=== PATIENT | male | born 1985 | race Caucasian/White ===

== ENCOUNTER 2022-08-13 21:22 | Emergency (ER) | payer BC, SELFPAY ==
[2022-08-13 21:25] VITALS: BP 140/84; PULSE 107; RESP 18; TEMP 36.8; O2SAT 98; BMI 56.5
--- NOTE | 2022-08-13 21:40 | ED.GENADULT ---
HPI - General Adult General Time Seen by Provider: 21:40 Date Seen: 08/13/22 Chief complaint: Unspecified Complaint, Adult Stated complaint: Bleeding hemorrhoid four hours Time Seen by Provider: 08/13/22 21:26 Source: patient and RN notes reviewed Mode of arrival: ambulatory Limitations: no limitations History of Present Illness HPI narrative: Patient is a 37-year-old male coming in with a presumed bleeding hemorrhoid. Start about 4 hours ago after wiping. He has been having problems with irregular bowel movements and went in to talk to his doctor. Told him about the feeling of incomplete emptying. During examination he reportedly was noted to have a hemorrhoid, his doctor gave him some steroid type cream. He also was working on bowel management with him. He started him on MiraLax and once the bowels were getting soft, told him to start Metamucil which she has not done. He does note that the bowels are softer and he has been going about twice a day. Denies any pain rectally. The hemorrhoid has not been painful. He is not on any blood thinners, has noted no problems with bleeding brushing his teeth, no petechial type rash. He does note that initially when he wiped he thought there was a lot of blood. He has continued to have bleeding from the hemorrhoid. Again this is painless. Related Data Home Medications Medication Instructions Recorded Confirmed famotidine 40 mg tablet 40 mg PO DAILY 08/13/22 08/13/22 hydrocortisone 2.5 % topical cream 1 applic topical BID PRN 08/13/22 08/13/22 lisinopril 10 1 tab PO DAILY 08/13/22 08/13/22 mg-hydrochlorothiazide 12.5 mg tablet Allergies Allergy/AdvReac Type Severity Reaction Status Date / Time No Known Drug Allergies Allergy Verified 08/13/22 21:30 Review of Systems Narrative: as per HPI PFSH PFSH Social History Smoking Status: Never smoker Do you use any of these nicotine containing products: None How often do you have a drink containing alcohol: monthly or less AUDIT-C Alcohol total score: 1 Non-prescribed substance use: denies use Exam Const: Vital Signs, click to edit/add: Vital Signs - 24 hr 08/13/22 21:25 Temperature 98.2 F Pulse Rate [Right Pulse Oximeter] 107 H Respiratory Rate 18 Blood Pressure [Ri ght Upper Arm] 140/84 H Pulse Oximetry 98 Oxygen Delivery Me thod Room Air Documenting provider has reviewed patient's vital signs: yes Common normals: no apparent distress, oriented x3, no limitations, healthy appearing, alert and well nourished General appearance: cooperative, comfortable, well kempt and well developed Nutritional appearance: obese Back & Pelvis: Other: Patient has some dried blood in the intergluteal region. On inspection of his anus as he is lying on his right side shows an area that looks like it has been a prior opening of a thrombosed hemorrhoid at about a 7 or 8 o'clock position. There is a tear drop shaped opening with no active bleeding that looks well healed. He states he has never had any intervention with hemorrhoids before. At about a 3 year 4 o'clock position there is a small pinpoint actively bleeding area. There is no underlying tenderness of this area. I can see some more prominent vessels but they are not thrombosed. He is absolutely not tender when I palpate this area. He has been using pressure with gauze and has not stop the bleeding for about 4 hours. I have reviewed with the patient that I do think we should proceed with a suture to try to stop the bleeding. I see no apparent underlying thrombosed hemorrhoid. Patient does give consent for this. With assistance of his nurse Jassi whom a helped with exposure, I was able to anesthetize the area using 1 mL of 2% xylocaine with epinephrine. I then had placed 2 figure of 8 stitches overlying this area using 5 0 Vicryl. The 1st suture did not capture full hemostasis, 2nd 1 was placed. This seemed to stop the bleeding. We did place surgifoam on top of this and then gauze between the intergluteal folds to ensure no further bleeding. Patient tolerated this well. Neuro: Common normals: oriented x3 Sensorium/orientation: alert Psych: Appearance: well kempt Course Vital Signs Vital signs: Initial Vital Signs Temperature 98.2 F 08/13/22 21:25 Temperature Source Temporal Artery Scan 08/13/22 21:25 Pulse Rate 107 H 08/13/22 21:25 Respiratory Rate 18 08/13/22 21:25 Blood Pressure 140/84 H 08/13/22 21:25 Blood Pressure Mean 102 08/13/22 21:25 Blood Pressure Position Sitting 08/13/22 21:25 Pulse Oximetry 98 08/13/22 21:25 Oxygen Delivery Method 08/13/22 21:25 Vital Signs Temperature 98.2 F 08/13/22 21:25 Pulse Rate 107 H 08/13/22 21:25 Respiratory Rate 18 08/13/22 21:25 Blood Pressure 140/84 H 08/13/22 21:25 Pulse Oximetry 98 08/13/22 21:25 Oxygen Delivery Method 08/13/22 21:25 Temperature 98.2 F 08/13/22 21:25 Pulse Rate 107 H 08/13/22 21:25 Respiratory Rate 18 08/13/22 21:25 Blood Pressure 140/84 H 08/13/22 21:25 Pulse Oximetry 98 08/13/22 21:25 Oxygen Delivery Method 08/13/22 21:25 Critical Care Time Critical Care Time Critical Care Time: No Discharge Plan Discharge Clinical Impression: External hemorrhoid, bleeding Condition: Stable Instructions: Hemorrhoids (ED) Additional Instructions: Try to leave the surgifoam and current gauze in place until morning. If for some reason the do get disrupted, do not worry about it unless the bleeding starts again. In the morning, can shower and try to allow the gauze and the surgifoam to fall off on its own. The stitches that I put in should absorb on their own. I do recommend follow-up with your primary care provider within the next week for re-evaluation of this area. If you have further problems, may actually need to see 1 of our general surgeons for further evaluation and treatment of this issue. Activity Level: Activity as Tolerated Prescriptions: No Action lisinopril-hydrochlorothiazide 10-12.5 mg tablet 1 tab PO DAILY Label Comments: TAKE 1 TABLET BY MOUTH EVERY DAY hydrocortisone 2.5 % cream 1 applic TOPICAL BID PRN Label Comments: APPLY TOPICALLY TO THE AFFECTED AREA TWICE DAILY famotidine 40 mg tablet 40 mg PO DAILY Label Comments: TAKE 1 TABLET BY MOUTH DAILY Follow Up/Referrals: Josef Monk MD [Primary Care Provider] - Stand Alone Forms: [facility] Info Instructions
--- NOTE | 2022-08-13 22:04 | ED.NURSE ---
placed 2 suture in the hemorroid and placed gel foam with 4x4s packed in the buttocks. bleeding has stopped for now.
== END 2022-08-13 22:38 | disposition home or self-care (01) ==
LOC: ED 22:19
PROVIDERS: Emergency Provider Family Medicine; PCP Student in an Organized Health Care Education/Training Program
DX: K64.8 Other hemorrhoids (principal)
CPT/HCPCS: 12001; 99283

== ENCOUNTER 2022-11-05 10:08 | Outpatient (CLI) | payer BC, SELFPAY | END 2022-11-05 10:09 | disposition home or self-care (01) | LOC: AMB 11-07 10:40 | PROVIDERS: PCP Student in an Organized Health Care Education/Training Program; Visit Provider Family Medicine | DX: M54.9 Dorsalgia, unspecified (principal) | CPT/HCPCS: A0425; A0427 ==

== ENCOUNTER 2022-11-05 10:39 | Emergency (ER) | payer BC, SELFPAY ==
[2022-11-05 11:26] VITALS: BP 168/82; PULSE 88; RESP 20; TEMP 36.9; O2SAT 100
--- NOTE | 2022-11-05 11:56 | ED_ITS ---
HPI - Back Pain/Injury General Time Seen by Provider: 11:56 Date Seen: 11/05/22 Chief Complaint: Back Injury/Pain Stated Complaint: Back pain Time Seen by Provider: 11/05/22 11:52 Source: patient Mode of arrival: ambulatory Limitations: no limitations History of Present Illness HPI Narrative: Ty is a 37-year-old male past medical history includes obstructive sleep apnea, obesity, GERD on omeprazole and Pepcid presents emergency department via EMS with a back injury. 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 No real shortness of breath. Pain progressively got worse, he ended up going home, did take some magnesium, which he has been taking for his right lower extremity cramping that he gets from time to time every 5 weeks or so. No history of any DVTs or PEs, h his father had pulmonary embolism but he had a history of lung cancer, patient has no cardiac history, no long travel. Pain is a dull ache under his left breast that has developed, worse with inspiration, pain in the back is minimal. Patient has had back issues in the past but nothing like this. No trauma or falls. Denies any nausea vomiting, abdominal pain. No fevers or chills. Patient tried to get his parents taken to the emergency department, but he was so uncomfortable he called EMS. They did do a 12 lead on route, they were unable to get a IV. Related Data Home Medications Medication Instructions Recorded Confirmed famotidine 40 mg tablet 40 mg PO DAILY 08/13/22 08/13/22 hydrocortisone 2.5 % topical cream 1 applic topical BID PRN 08/13/22 08/13/22 lisinopril 10 1 tab PO DAILY 08/13/22 08/13/22 mg-hydrochlorothiazide 12.5 mg tablet Allergies Allergy/AdvReac Type Severity Reaction Status Date / Time No Known Drug Allergies Allergy Verified 08/13/22 21:30 Review of Systems Status of ROS: Reports: 10 or more systems reviewed and unremarkable except as noted in History and below PFSH PFSH Social History Smoking Status: Never smoker Do you use any of these nicotine containing products: None How often do you have a drink containing alcohol: monthly or less AUDIT-C Alcohol total score: 1 Non-prescribed substance use: denies use Exam Narrative: Exam Narrative: General: No obvious distress sitting comfortably, nontoxic in appearance HEENT: Pupils equal round reactive to light, extraocular muscles intact Lungs: Clear to auscultation bilaterally Neck: Nontender cervical spine, supple full range of motion Heart normal sinus rhythm S1-S2 Muscle skeletal: Mild tenderness to palpation the left upper thoracic region just inferior to the scapula Mild tenderness to palpation, ribs just below his left breast Abdomen: Obese, bowel sounds present, distended but soft, nontender to palpation No CVA tenderness Lower extremity: Chronic lower extremity swelling, no palpable cord. Neuro: Alert awake and oriented x3 Const: Vital Signs, click to edit/add: Vital Signs - 24 hr 11/05/22 11:26 11/05/22 14:04 Temperature 98.5 F Pulse Rate [Right Pulse Oximeter] 88 93 Respiratory Rate 20 Blood Pressure [Ri ght Upper Arm] 168/82 H 133/80 Pulse Oximetry 100 98 Oxygen Delivery Me thod Room Air Room Air Course Course Hospital Course: 12:00 PM: AIDET performed. work up will include urinalysis, CBC, point of care troponin, D-dimer, CMP, lipase, IV peripheral,15 mg IV Toradol for his pain, s eems more reproducible, atypical presentation for PE, no tachycardia, hypoxia, it is pleuritic however, Wells criteria, 0.0 points. patients blood presssure elevated will continue to monitor. Patient was in agreement Differential diagnosis include but not limited to life-threatening cauda equina epidural abscess, [place]/CAD, PE, aortic dissection, other considerations include sprain, contusion, nerve root and track min, radiculopathy, muscle spasm, urolithiasis, lumbar fracture, pyelonephritis as well as other etiologies, patient denies saddle anesthesia, bowel or bladder incontinence or lower ex tremity weakness. 2:00 PM: patient was updated on his lab results, EKG showed a normal sinus rhythm with an incomplete right bundle-branch block, no comparisons, per ED provider, point of care troponin was 0.0, D-dimer within normal limits, CBC showed no leukocytosis, he had mildly elevated LFTs, but a normal lipase. S given the above care and is back pain improved, however still having some chest pain and upper abdominal pain in the epigastric. He was given 2 mg IV morphine and 40 mg IV Protonix. Plan to still obtain CTA chest with IV contrast. Patient was in agreement. Reevaluation(s) Reevaluation #1: CTA chest with IV contrast: IMPRESSION: 1. No evidence of pulmonary embolus. 2. No acute pulmonary consolidation. 3. Moderate hepatic steatosis. Patient was updated on his imaging results no evidence of pulmonary embolism, minor hepatic steatosis consistent with his elevated LFTs, patient was still having some upper epigastric left anterior chest pain, repeat troponin was 0.0, he was given and GI cocktail due to his history of GERD and radiation of pain from his back to the front. CT imaging showed no concerning factors for the thoracic an ascending aorta. 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 He will schedule a follow-up appointment with his primary care provider in the next 2 days. Return precautions given. Time: 15:48 Vital Signs Vital signs: Initial Vital Signs Temperature 98.5 F 11/05/22 11:26 Temperature Source Temporal Artery Scan 11/05/22 11:26 Pulse Rate 88 11/05/22 11:26 Pulse Rhythm Regular 11/05/22 11:26 Respiratory Rate 20 11/05/22 11:26 Blood Pressure 168/82 H 11/05/22 11:26 Blood Pressure Mean 110 H 11/05/22 11:26 Blood Pressure Position Sitting 11/05/22 11:26 Pulse Oximetry 100 11/05/22 11:26 Oxygen Delivery Method Room Air 11/05/22 11:26 Vital Signs Temperature 98.5 F 11/05/22 11:26 Pulse Rate 88 11/05/22 11:26 Respiratory Rate 20 11/05/22 11:26 Blood Pressure 168/82 H 11/05/22 11:26 Pulse Oximetry 100 11/05/22 11:26 Oxygen Delivery Method Room Air 11/05/22 11:26 Temperature 98.5 F 11/05/22 11:26 Pulse Rate 93 04/25/23 14:04 Respiratory Rate 20 11/05/22 11:26 Blood Pressure 133/80 11/05/22 14:04 Pulse Oximetry 98 11/05/22 14:04 Oxygen Delivery Method Room Air 11/05/22 14:04 MDM - Back Pain/Injury Lab Data Labs: Lab Results 11/05/22 11/05/22 11/05/22 Range/Units 11:45 13:10 13:17 WBC 8.68 (4.50-11.00) K/uL RBC 5.35 (4.30-5.90) m/uL Hgb 14.4 (13.5-17.5) gm/dL Hct 44.3 (37.0-53.0) % MCV 83 (80-100) fL MCH 27 (26-34) pg MCHC 33 (32-36) gm/dL RDW Coeff of Darren 14.2 (11.5-15.5) % Plt Count 249 (140-440) K/uL Neut % (Auto) 79.5 H (42.0-72.0) % Lymph % (Auto) 12.2 L (20-44) % [place] % (Auto) 6.5 (0.0-11.0) % Eos % (Auto) 1.0 (0.0-7.0) % Baso % (Auto) 0.3 (0.0-3.0) % Neut # (Auto) 6.90 (1.7-7.0) K/uL Lymph # (Auto) 1.10 (0.90-2.90) K/uL Norton # (Auto) 0.60 (0.00-0.90) K/UL Eos # (Auto) 0.09 (0.00-0.50) K/uL Baso # (Auto) 0.03 (0.00-0.30) K/uL D-Dimer Quant (PE/DVT) 0.28 (0.00-0.50) ug/ml Sodium 138 (135-149) mmol/L Potassium 4.4 (3.6-5.1) mmol/L Chloride 104 (96-114) mmol/L Carbon Dioxide 26 (20-32) mmol/L BUN 17 (5-24) mg/dL Creatinine 1.2 (0.5-1.5) mg/dL Estimated GFR 79 ml/min Glucose 115 (60-115) mg/dL Calcium 9.6 (8.4-10.6) mg/dL Total Bilirubin 0.7 (0.1-1.5) mg/dL AST 43 H (12-35) U/L ALT 73 H (4-50) U/L Alkaline Phosphatase 53 (40-150) U/L Total Protein 7.8 (6.0-8.3) g/dL Albumin 4.6 (3.3-5.0) g/dL Lipase 48 (23-300) U/L Urine Color Yellow (Yellow) Urine Appearance Clear (Clear) Urine pH 6.5 (5.0-8.5) Ur Specific [place] 1.020 (1.000-1.030) Urine Protein Negative (Negative) Urine Glucose (UA) Negative (Negative) Urine Ketones Negative (Negative) Urine Blood Negative (Negative) Urine Nitrite Negative (Negative) Urine Bilirubin Negative (Negative) Urine Urobilinogen 0.2 (0.2-1.0) Ur Leukocyte Esterase Negative (Negative) Urine RBC 0-2 (0-2) Urine WBC 0-2 (0-5) Ur Squamous Epith Cells None (None-Few) Urine Bacteria None (None) POC Troponin I 0.00 L (0.01-0.04) ng/ml 11/05/22 Range/Units 16:10 WBC (4.50-11.00) K/uL RBC (4.30-5.90) m/uL Hgb (13.5-17.5) gm/dL Hct (37.0-53.0) % MCV (80-100) fL MCH (26-34) pg MCHC (32-36) gm/dL RDW Coeff of Darren (11.5-15.5) % Plt Count (140-440) K/uL Neut % (Auto) (42.0-72.0) % Lymph % (Auto) (20-44) % [place] % (Auto) (0.0-11.0) % Eos % (Auto) (0.0-7.0) % Baso % (Auto) (0.0-3.0) % Neut # (Auto) (1.7-7.0) K/uL Lymph # (Auto) (0.90-2.90) K/uL Norton # (Auto) (0.00-0.90) K/UL Eos # (Auto) (0.00-0.50) K/uL Baso # (Auto) (0.00-0.30) K/uL D-Dimer Quant (PE/DVT) (0.00-0.50) ug/ml Sodium (135-149) mmol/L Potassium (3.6-5.1) mmol/L Chloride (96-114) mmol/L Carbon Dioxide (20-32) mmol/L BUN (5-24) mg/dL Creatinine (0.5-1.5) mg/dL Estimated GFR ml/min Glucose (60-115) mg/dL Calcium (8.4-10.6) mg/dL Total Bilirubin (0.1-1.5) mg/dL AST (12-35) U/L ALT (4-50) U/L Alkaline Phosphatase (40-150) U/L Total Protein (6.0-8.3) g/dL Albumin (3.3-5.0) g/dL Lipase (23-300) U/L Urine Color (Yellow) Urine Appearance (Clear) Urine pH (5.0-8.5) Ur Specific [place] (1.000-1.030) Urine Protein (Negative) Urine Glucose (UA) (Negative) Urine Ketones (Negative) Urine Blood (Negative) Urine Nitrite (Negative) Urine Bilirubin (Negative) Urine Urobilinogen (0.2-1.0) Ur Leukocyte Esterase (Negative) Urine RBC (0-2) Urine WBC (0-5) Ur Squamous Epith Cells (None-Few) Urine Bacteria (None) POC Troponin I 0.00 L (0.01-0.04) ng/ml Discharge Plan Discharge Clinical Impression: Acute upper back pain, Atypical chest pain Patient Disposition: Home, Self-Care Condition: Improved Instructions: Chest Pain (ED), Back Pain (ED) Additional Instructions: To continue with the Omeprazole 40 mg daily and pepcid 20 mg twice daily, to add some Maalox or Mylanta suspension, and take every few hours. To follow up with primary doctor on as scheduled. Return if worsening symptoms. Activity Level: No Restrictions Prescriptions: No Action lisinopril-hydrochlorothiazide 10-12.5 mg tablet 1 tab PO DAILY Patient Comments: TAKE 1 TABLET BY MOUTH EVERY DAY hydrocortisone 2.5 % cream 1 applic TOPICAL BID PRN Patient Comments: APPLY TOPICALLY TO THE AFFECTED AREA TWICE DAILY famotidine 40 mg tablet 40 mg PO DAILY Patient Comments: TAKE 1 TABLET BY MOUTH DAILY Follow Up/Referrals: SUMEET AYALA DO [Primary Care Provider] - Stand Alone Forms: [facility] Info Instructions
[2022-11-05 11:57] LABS: Appearance Urine Clear (Clear); Bilirubin Urine Negative (Negative); Blood Urine Negative (Negative); Color Urine Yellow (Yellow); Glucose Urine Negative (Negative); Ketones Urine Negative (Negative); Leukocyte Esterase Urine Negative (Negative); Nitrite Urine Negative (Negative); Protein Urine Negative (Negative); Urobilinogen Urine 0.2 (0.2-1.0); pH Urine 6.5 (5.0-8.5)
[2022-11-05 12:04] LABS: RBC Urine 0-2 (0-2); WBC Urine 0-2 (0-5)
[2022-11-05 13:29] LABS: Basophils Absolute Auto 0.03 K/uL (0.00-0.30); Basophils Percent Auto 0.3 % (0.0-3.0); Eosinophils Absolute Auto 0.09 K/uL (0.00-0.50); Hematocrit 44.3 % (37.0-53.0); Hemoglobin* 14.4 gm/dL (13.5-17.5); Immature Granulocytes Abs Auto 0.04 K/uL (0.00-0.30); Immature Granulocytes Pct Auto 0.5 %; Lymphocytes Percent Auto 12.2 % (20-44); Mean Corpuscular HGB Conc 33 gm/dL (32-36); Mean Corpuscular Hemoglobin 27 pg (26-34); Mean Corpuscular Volume 83 fL (80-100); Monocytes Percent Auto 6.5 % (0.0-11.0); Neutrophils Percent Auto 79.5 % (42.0-72.0); Platelet Count* 249 K/uL (140-440); RDW Coefficient of Variation % 14.2 % (11.5-15.5); Red Blood Count 5.35 m/uL (4.30-5.90); White Blood Count* 8.68 K/uL (4.50-11.00)
[2022-11-05 13:43] LABS: Albumin* 4.6 g/dL (3.3-5.0); Chloride* 104 mmol/L (96-114)
[2022-11-05 13:44] LABS: Potassium* 4.4 mmol/L (3.6-5.1); Sodium* 138 mmol/L (135-149)
[2022-11-05 13:46] LABS: Alkaline Phosphatase* 53 U/L (40-150); Aspartate Amino Transferase* 43 U/L (12-35); Bilirubin Total* 0.7 mg/dL (0.1-1.5); Carbon Dioxide* 26 mmol/L (20-32); Creatinine* 1.2 mg/dL (0.5-1.5); Estimated Glomerular Filt Rate 79 ml/min; Total Protein* 7.8 g/dL (6.0-8.3)
[2022-11-05 13:47] LABS: Alanine Aminotransferase* 73 U/L (4-50); Blood Urea Nitrogen* 17 mg/dL (5-24); Calcium* 9.6 mg/dL (8.4-10.6); D Dimer Quantitative* 0.28 ug/ml (0.00-0.50); Glucose* 115 mg/dL (60-115); Lipase* 48 U/L (23-300)
--- NOTE | 2022-11-05 13:50 | CRLHL7_ITS ---
For Patients: As a result of the Century Cures Act, medical imaging exams and procedure reports are released immediately into your electronic medical record. You may view this report before your referring provider. If you have questions, please contact your health care provider. INDICATION: Pleuritic chest pain and thoracic spine pain TECHNIQUE: CT chest PE was acquired with 150 cc Isovue 370 intravenous contrast. COMPARISON: None. FINDINGS: Heart and vasculature: Contrast opacification of the pulmonary arterial tree is adequate. No sign of pulmonary embolism. Heart size is normal. Thoracic aorta and pulmonary artery are normal in caliber. Lungs and pleural: No suspicious nodules or infiltrates. No pleural effusions, pleural thickening, or pneumothorax. Lymph nodes/mediastinum: No mediastinal, hilar, or axillary adenopathy. Chest wall: No masses. Upper abdomen: Diffusely decreased density of the liver. Bones: Unremarkable for age. IMPRESSION: 1. No evidence of pulmonary embolus. 2. No acute pulmonary consolidation. 3. Moderate hepatic steatosis. Please note that all CT scans at this facility use dose modulation, iterative reconstruction, and/or weight-based dosing when appropriate to reduce radiation dose to as low as reasonably achievable. Dictated by Mu Stoner MD @ 11/05/2022 3:31:24 PM (Electronically Signed)
[2022-11-05 13:53] LABS: Slide Review Reflex No
[2022-11-05] MEDS: KETOROLAC 15 MG/ML inj IVP (14:00)
[2022-11-05 14:04] VITALS: BP 133/80; PULSE 93; O2SAT 98
[2022-11-05] MEDS: MORPHINE 2 MG/ML inj IVP (15:34)
[2022-11-05] MEDS: PANTOPRAZOLE SODIUM 40 MG INJ IVP (16:09)
[2022-11-05] MEDS: GI COCKTAIL (VISC LIDO/ANTACID) 30 ML PO (17:14)
[2022-11-05 18:24] VITALS: BP 130/84; PULSE 84; RESP 18; O2SAT 99
== END 2022-11-05 18:23 | disposition home or self-care (01) ==
PROVIDERS: Emergency Provider Student in an Organized Health Care Education/Training Program; PCP Student in an Organized Health Care Education/Training Program
DX: M54.6 Pain in thoracic spine (principal); R07.89 Other chest pain
CPT/HCPCS: 36415; 71260; 80053; 81001; 83690; 84484; 85025; 85379; 93005; 96374; 96375; 99283; 99284; 99285; A9270; C9113; J1885; J2270; Q9967